=== PATIENT | female | born 1980 | race Caucasian/White ===

== ENCOUNTER 2024-07-01 15:09 | Emergency (ER) | payer MEDICAID, SELFPAY ==
--- NOTE | ~2024-07-01 | US_ITS ---
EXAMINATION: ULTRASOUND PELVIC, COMPLETE CLINICAL INFORMATION: Pelvic pain. Vaginal bleeding. Beta-hCG = 24 COMPARISON: None. TECHNIQUE: Transvaginal: Used to better visualize pelvic structures Transabdominal: Not adequate for visualization. Spectral Doppler and color Doppler exam was utilized. LMP: May 22, 2024 FINDINGS: UTERUS: No intrauterine gestation. No fluid collection in the endometrial cavity. The major stripe measures 0.7 cm. Uterus measures 4.3 x 8 x 4.2 cm. ADNEXA: Left adnexa: Left ovary not visualized. Right adnexa: Ovarian vascularity:Doppler demonstrates both arterial and venous vascular flow in the right ovary. No evidence of ovarian torsion. Right Ovary: Dominant follicle measuring 1.9 cm. Right ovary measures 2.6 x 1.4 x 3.4 cm. Cul-de-sac: No Fluid US/US OB <= 14 weeks fetus IMPRESSION: 1. No intrauterine gestation. No fluid collection in the endometrial cavity. 2. Left ovary not visualized. 3. Dominant follicle in the right ovary. Electronically signed by: Mg Nation MD 07/01/2024 08:03 PM [facility]
[2024-07-01 15:17] VITALS: BP 139/82; PULSE 84; RESP 16; TEMP 36.3; O2SAT 98; BMI 27.6
--- NOTE | 2024-07-01 15:19 | ED_ITS ---
HPI - General Adult General Chief complaint: Urogenital-Female Stated complaint: bleeding cramps Time Seen by Provider: 07/01/24 17:47 Related Data Allergies Allergy/AdvReac Type Severity Reaction Status Date / Time No Known Allergies Allergy Verified 07/01/24 15:22 [facility] Social History Social History Smoked in Last 30 Days: No Use of substances other than those prescribed or required for medical reasons: No Advance Directives: No Advance Directives Information Provided: Yes Do you have a plan to hurt others: No Plan Physical Exam ED Vital Signs: Vital Signs - 24 hr 07/01/24 15:17 07/01/24 18:26 07/01/24 20:05 Temperature 97.4 F 98.0 F 98.1 F Pulse Rate 84 56 50 Respiratory Rate 16 14 16 Blood Pressure 139/82 106/66 103/63 Pulse Oximetry 98 100 100 Oxygen Delivery Method Room Air Room Air Room Air BMI result Body Mass Index 27.6 Course Course Course Narrative: RME, this is a rapid medical exam performed by Charly Martines please refer to primary provider for complete H&P- 43-year-old female presents for evaluation of lower abdominal cramping and vaginal bleeding. She recently found out that she is , her last menstrual cycle was May 22. She is G2P!. Plan for labs, UA, ultrasound, ABO, RH typing Medical Decision Making Lab Data 07/01/24 16:22 07/01/24 16:22 Labs: Lab Results 07/01/24 Range/Units 16:22 WBC 10.2 (4.8-10.8) X10*3/uL RBC 4.10 L (4.20-5.50) X10*6/uL Hgb 12.6 (12.0-16.0) g/dl Hct 37.4 (37.0-47.0) % MCV 91.2 (80.0-98.0) fL MCH 30.7 (27.0-33.0) pg MCHC 33.7 (31.0-35.0) g/dl RDW 12.2 (11.0-16.0) % Plt Count 279 (160-400) X10*3/uL MPV 9.8 (9.4-12.3) fL Immature Gran % (Auto) 0.2 (0.0-0.4) % Neut % (Auto) 63.2 (45-73) % Lymph % (Auto) 29.6 (20-40) % [place] % (Auto) 5.1 (2-11) % Eos % (Auto) 1.5 (0-4) % Baso % (Auto) 0.4 (0-2) % Lymph # (Auto) 3.0 (1.2-4.9) X10*3/uL [place] # (Auto) 0.5 (0.1-1.2) X10*3/uL Eos # (Auto) 0.2 (0.0-0.4) X10*3/uL Baso # (Auto) 0.0 (0.0-0.2) X10*3/uL Abs Immat Gran (auto) 0.02 (0.00-0.03) X10*3/uL Absolute Neuts (auto) 6.4 (2.0-8.3) x10*3/uL Absolute Nucleated RBC 0.000 (0.0-0.012) X10*3/uL Nucleated RBC % (auto) 0.0 (0.0-0.2) /100WBC Sodium 140 (135-145) mmol/L Potassium 4.1 (3.3-5.1) mmol/L Chloride 107 (96-108) mmol/L Carbon Dioxide 26 (22-29) mmol/L Anion Gap 11 L (12-20) BUN 13 (9-16) mg/dL Creatinine 0.67 (0.5-1.4) mg/dL Estim Creat Clear Calc 115.3 Estimated GFR > 60 Random Glucose 85 (60-115) mg/dL Calcium 9.2 (8.4-10.2) mg/dL Total Bilirubin 0.7 (0.0-1.0) mg/dL AST 22 (5-31) U/L ALT 12 (0-31) U/L Alkaline Phosphatase 33 L (39-117) U/L Total Protein 7.0 (6.5-8.0) g/dL Albumin 4.2 (3.5-5.0) g/dL Lipase 22 (8-78) U/L Beta HCG, Quant 24 mIU/mL Urine Color Yellow Urine Appearance Cloudy Urine pH 5.5 (5.0-9.0) Ur Specific [place] 1.020 (1.005-1.025) Urine Protein Trace (Neg-Trace) mg/dL Urine Glucose (UA) Negative (Negative) mg/dL Urine Ketones Trace (Negative) mg/dL Urine Blood Large (3+) H (Negative) Urine Nitrite Negative (Negative) Ur Leukocyte Esterase Moderate (2+) H (Negative) Urine RBC >20 H (0-2) /HPF Urine WBC 6-10 H (0-5) /HPF Ur Squamous Epith Cells 0-2 (0-2) /HPF Urine Bacteria 1+ (None Seen) Hyaline Casts 0-2 (0-2) /LPF Blood Type A Positive Discharge Plan Discharge Clinical Impression: Threatened miscarriage Patient Disposition: Home, Self-Care Instructions: Ectopic (DC), Threatened Miscarriage (ED) Additional Instructions: Your condition can be caused by ectopic or in the wrong place. Worsened pain return to the emergency department immediately. It can also be caused by missed 80. Please come back in 2 days and get your repeat hormone level checked. Finally it could be a miscarriage. Referrals: Marni Shrestha MD [Emergency Provider] - 07/03/24 Print Language: Panamanian
[2024-07-01 16:26] LABS: MANUAL DIFF FLAG NO
[2024-07-01 16:29] LABS: Basophils Percent Auto 0.4 % (0-2); Eosinophils Absolute Auto 0.2 X10*3/uL (0.0-0.4); Eosinophils Percent Auto 1.5 % (0-4); Hematocrit 37.4 % (37.0-47.0); Hemoglobin 12.6 g/dl (12.0-16.0); Imm Gran Abs Auto 0.02 X10*3/uL (0.00-0.03); Imm Gran Pct Auto 0.2 % (0.0-0.4); Lymphocytes Percent Auto 29.6 % (20-40); Mean Corpuscular HGB Conc 33.7 g/dl (31.0-35.0); Mean Corpuscular Hemoglobin 30.7 pg (27.0-33.0); Mean Corpuscular Volume 91.2 fL (80.0-98.0); Mean Platelet Volume 9.8 fL (9.4-12.3); Monocytes Absolute Auto 0.5 X10*3/uL (0.1-1.2); Monocytes Percent Auto 5.1 % (2-11); Neutrophils Absolute Auto 6.4 x10*3/uL (2.0-8.3); Neutrophils Percent Auto 63.2 % (45-73); Platelet Count 279 X10*3/uL (160-400); Red Cell Distribution Width 12.2 % (11.0-16.0); White Blood Count 10.2 X10*3/uL (4.8-10.8)
[2024-07-01 16:34] LABS: Appearance Urine Cloudy; Color Urine Yellow; Glucose Urine UA Negative (Negative); Leukocyte Esterase Urine Moderate (2+) (Negative); Nitrite Urine Negative (Negative); PH 5.5 (5.0-9.0); UMIC TRIGGER UACC YES; Urine Blood Large (3+) (Negative); Urine Ketones Trace mg/dL (Negative); Urine Protein Trace mg/dL (Neg-Trace)
[2024-07-01 16:36] LABS: Bacteria Urine 1+ (None Seen); Hyaline Casts Urine 0-2 /LPF (0-2); RBC Urine >20 /HPF (0-2); Squamous Epithelial Cell Urine 0-2 /HPF (0-2); UACC Culture Trigger YES
[2024-07-01 17:01] LABS: Alanine Aminotransferase 12 U/L (0-31); Albumin Level 4.2 g/dL (3.5-5.0); Alkaline Phosphatase 33 U/L (39-117); Anion Gap 11 (12-20); Aspartate Amino Transferase 22 U/L (5-31); Bilirubin Total 0.7 mg/dL (0.0-1.0); Blood Urea Nitrogen 13 mg/dL (9-16); Calcium 9.2 mg/dL (8.4-10.2); Carbon Dioxide 26 mmol/L (22-29); Chloride 107 mmol/L (96-108); Creatinine Clr Calc Pharmacy 115.3; Estimated Glomerular Filt Rate > 60; Glucose Random 85 mg/dL (60-115); HCG Quantitative 24 mIU/mL; Lipase 22 U/L (8-78); Potassium 4.1 mmol/L (3.3-5.1); Sodium 140 mmol/L (135-145)
--- NOTE | 2024-07-01 18:12 | ED_ITS ---
HPI - Female Genitourinary General Chief complaint: Urogenital-Female Stated complaint: bleeding cramps Time Seen by Provider: 07/01/24 17:47 History of Present Illness HPI Narrative: patient is a 43-year-old female . Took a home test was positive. Patient came in for further evaluation today noticed having spotting. Having to change 3 pads. Small amount of clot mixed with blood. Patient is never had an ectopic . Minimal abdominal cramping. Have not had an ultrasound for this . Her last menstrual period was May 22. Patient is from home. Related Data Allergies Allergy/AdvReac Type Severity Reaction Status Date / Time No Known Allergies Allergy Verified 07/01/24 15:22 Review of Systems 2 Review of Systems: Positive lower abdominal cramping positive changing 3 pads Yes all other systems are reviewed and are negative [facility] Past Medical History Attestation statement: The following information was validated with the patient. Social History Social History Smoked in Last 30 Days: No Use of substances other than those prescribed or required for medical reasons: No Advance Directives: No Advance Directives Information Provided: Yes Do you have a plan to hurt others: No Plan Physical Exam 2 Vital Signs: Vital Signs: Last Vital Signs Temp 98.1 F 07/01/24 20:05 Pulse 50 07/01/24 20:05 Resp 16 07/01/24 20:05 BP 103/63 07/01/24 20:05 Pulse Ox 100 07/01/24 20:05 O2 Del Method Room Air 07/01/24 20:05 BMI result Body Mass Index 27.6 Appearance: Alert. Oriented X3. No acute distress. Eyes: Pupils equal, round and reactive to light. ENT: Pharynx normal. Neck: Normal inspection. Neck supple. No lymph nodes noted. No crepitus CVS: Normal heart rate and rhythm. Pulses normal. Normal S1 and S2 Respiratory: No respiratory distress. Breath sounds normal. No Wheezing. No rales Abdomen: Soft and nontender. No rigidity. No distention. good BS x4 Skin: Skin warm and dry. Normal skin color. Normal skin turgor. Extremities: No lower extremity edema. Neurovascular intact to all extremities. No Lacerations. No Rash Neuro: Oriented X 3. No motor deficit. No sensory deficit. Moving all extermities. No slurred speech pelvic exam done with tech Andre present. No external lesion. Cervical os is closed minimal bleeding in the vaginal vault. Minimal clots noted. Medical Decision Making Medical Decision Making [facility] Narrative: Well-appearing no acute distress. Patient's last menstrual period was May 22. Quant is only 24. Question dating versus ectopic versus miscarriage. Blood type is A-positive no ABO incompatibility. Currently awaiting ultrasound results. Patient's hemoglobin is 12.6. No signs of anemia. Patient's electrolytes are normal. Urine showed no signs of infection. patient quant hCG was 24. Well-appearing no distress. Patient's ultrasound showed no intrauterine . Question miscarriage versus early versus ectopic. Will have patient get a repeat quant in 2 days. Case discussed with Dr. Homero [place] from [facility]. Since he will be out of town in 2 days. Suggested patient to come back to the emergency department for follow-up. Repeat hormone check. Explained to patient risk of ectopic exists. Worsened pain to return to the ED immediately. Bleeding can persist. Currently in stable condition. Will discharge home Differential Diagnosis Differential Diagnoses: The differential diagnosis associated with the presentation includes ectopic versus miscarriage versus missed dating Admission/Observation Consideration of admission/observation: Escalation of care including admission/observation considered Consult Healthcare Provider Management of the patient was discussed with: [employer] ( [facility]) Lab Data [facility] Lab Attestation statement: I reviewed the patient's lab results. 07/01/24 16:22 07/01/24 16:22 Labs: Lab Results 07/01/24 Range/Units 16:22 WBC 10.2 (4.8-10.8) X10*3/uL RBC 4.10 L (4.20-5.50) X10*6/uL Hgb 12.6 (12.0-16.0) g/dl Hct 37.4 (37.0-47.0) % MCV 91.2 (80.0-98.0) fL MCH 30.7 (27.0-33.0) pg MCHC 33.7 (31.0-35.0) g/dl RDW 12.2 (11.0-16.0) % Plt Count 279 (160-400) X10*3/uL MPV 9.8 (9.4-12.3) fL Immature Gran % (Auto) 0.2 (0.0-0.4) % Neut % (Auto) 63.2 (45-73) % Lymph % (Auto) 29.6 (20-40) % [place] % (Auto) 5.1 (2-11) % Eos % (Auto) 1.5 (0-4) % Baso % (Auto) 0.4 (0-2) % Lymph # (Auto) 3.0 (1.2-4.9) X10*3/uL [place] # (Auto) 0.5 (0.1-1.2) X10*3/uL Eos # (Auto) 0.2 (0.0-0.4) X10*3/uL Baso # (Auto) 0.0 (0.0-0.2) X10*3/uL Abs Immat Gran (auto) 0.02 (0.00-0.03) X10*3/uL Absolute Neuts (auto) 6.4 (2.0-8.3) x10*3/uL Absolute Nucleated RBC 0.000 (0.0-0.012) X10*3/uL Nucleated RBC % (auto) 0.0 (0.0-0.2) /100WBC Sodium 140 (135-145) mmol/L Potassium 4.1 (3.3-5.1) mmol/L Chloride 107 (96-108) mmol/L Carbon Dioxide 26 (22-29) mmol/L Anion Gap 11 L (12-20) BUN 13 (9-16) mg/dL Creatinine 0.67 (0.5-1.4) mg/dL Estim Creat Clear Calc 115.3 Estimated GFR > 60 Random Glucose 85 (60-115) mg/dL Calcium 9.2 (8.4-10.2) mg/dL Total Bilirubin 0.7 (0.0-1.0) mg/dL AST 22 (5-31) U/L ALT 12 (0-31) U/L Alkaline Phosphatase 33 L (39-117) U/L Total Protein 7.0 (6.5-8.0) g/dL Albumin 4.2 (3.5-5.0) g/dL Lipase 22 (8-78) U/L Beta HCG, Quant 24 mIU/mL Urine Color Yellow Urine Appearance Cloudy Urine pH 5.5 (5.0-9.0) Ur Specific [place] 1.020 (1.005-1.025) Urine Protein Trace (Neg-Trace) mg/dL Urine Glucose (UA) Negative (Negative) mg/dL Urine Ketones Trace (Negative) mg/dL Urine Blood Large (3+) H (Negative) Urine Nitrite Negative (Negative) Ur Leukocyte Esterase Moderate (2+) H (Negative) Urine RBC >20 H (0-2) /HPF Urine WBC 6-10 H (0-5) /HPF Ur Squamous Epith Cells 0-2 (0-2) /HPF Urine Bacteria 1+ (None Seen) Hyaline Casts 0-2 (0-2) /LPF Blood Type A Positive Independent Interpretation I performed an independent interpretation of an: Ultrasound ( no IUP noted) Radiology Impression Discussion of test interpretation with radiology: I have reviewed the radiologist's reading. Discharge Plan Discharge Clinical Impression: Threatened miscarriage Patient Disposition: Home, Self-Care Instructions: Ectopic (DC), Threatened Miscarriage (ED) Additional Instructions: Your condition can be caused by ectopic or in the wrong place. Worsened pain return to the emergency department immediately. It can also be caused by missed 80. Please come back in 2 days and get your repeat hormone level checked. Finally it could be a miscarriage. Referrals: Marni Shrestha MD [Emergency Provider] - 07/03/24 Print Language: Georgian
[2024-07-01 18:26] VITALS: BP 106/66; PULSE 56; RESP 14; TEMP 36.7; O2SAT 100
[2024-07-01 20:05] VITALS: BP 103/63; PULSE 50; RESP 16; TEMP 36.7; O2SAT 100
[2024-07-01 20:35] VITALS: BP 103/63; PULSE 50; RESP 16; TEMP 36.7; O2SAT 100
--- NOTE | 2024-07-01 22:06 | P.CONOB_ITS ---
HEEL CASER - CN: HPI Data of Consult Consult date: 07/01/24 Primary Care Provider: None Physician Consult Narrative Narrative: Late entry note I was consulted at 20:11 on Gretta Johnson who is a 43 year old female patient who presented to the emergency room with light vaginal spotting and minimal vaginal bleeding and mild pelvic cramping, the patient had a positive home test . Her last menstrual period was May 22. In the emergency room the following workup was done: H&H within normal Blood type A positive Pelvic ultrasound showed the following: IMPRESSION: 1. No intrauterine gestation. No fluid collection in the endometrial cavity. 2. Left ovary not visualized. 3. Dominant follicle in the right ovary. cc:: CC: OB [facility] Social History Social History Smoked in Last 30 Days: No Use of substances other than those prescribed or required for medical reasons: No Advance Directives: No Advance Directives Information Provided: Yes Do you have a plan to hurt others: No Plan Meds Allergies Allergy/AdvReac Type Severity Reaction Status Date / Time No Known Allergies Allergy Verified 07/01/24 15:22 HEEL CASER Physical Exam Vitals Vital signs: Temp Pulse Resp BP Pulse Ox O2 Del Method 98.1 F 50 16 103/63 100 Room Air 07/01/24 20:35 07/01/24 20:35 07/01/24 20:35 07/01/24 20:35 07/01/24 20:35 07/01/24 20:35 BMI result Body Mass Index 27.6 Additional Comments: Pelvic exam to Dr. Shrestha reported as the following: No external lesion. Cervical os is closed minimal bleeding in the vaginal vault. Minimal clots noted. HEEL CASER - Results Labs 07/01/24 16:22 07/01/24 16:22 Labs: Short CBC 07/01/24 Range/Units 16:22 WBC 10.2 (4.8-10.8) X10*3/uL Hgb 12.6 (12.0-16.0) g/dl Hct 37.4 (37.0-47.0) % Plt Count 279 (160-400) X10*3/uL BMP 07/01/24 16:22 Sodium 140 Potassium 4.1 Chloride 107 Carbon Dioxide 26 BUN 13 Creatinine 0.67 Calcium 9.2 Liver Function 07/01/24 Range/Units 16:22 Total Bilirubin 0.7 (0.0-1.0) mg/dL AST 22 (5-31) U/L ALT 12 (0-31) U/L Alkaline Phosphatase 33 L (39-117) U/L Albumin 4.2 (3.5-5.0) g/dL Urine 1824 Range/Units 16:22 Urine Color Yellow Urine Appearance Cloudy Urine pH 5.5 (5.0-9.0) Ur Specific [place] 1.020 (1.005-1.025) Urine Protein Trace (Neg-Trace) mg/dL Urine Glucose (UA) Negative (Negative) mg/dL Assessment and Plan (1) Early stage of : Status: Acute Discussed the following with Dr. Shrestha: Differential diagnosis includes early , SAB, ectopic Recommend repeat quantitative hCG, ultrasound and evaluation in 48 hours. The patient is to follow-up with her OBGYN within 48 hours; explained to Dr. Shrestha that there is no available providers in our office for the coming week, therefore I recommend for the patient to come back to the emergency room in 48 hours for repeat quantitative hCG, pelvic ultrasound and re-evaluation. Signs and symptoms of SAB/incomplete AB and ectopic to be discussed with the patient, she is to come back to the emergency room in case of vaginal bleeding, pelvic pain prior to 48 hours. I spent a total of 20 minutes reviewing the chart, talking to the patient via video and documenting in the medical record.
== END 2024-07-01 20:36 | disposition home or self-care (01) ==
PROVIDERS: Physician Assistant; Emergency Provider Emergency Medicine Emergency Medical Services
DX: O20.0 Threatened abortion (principal); Z79.899 Other long term (current) drug therapy
CPT/HCPCS: 36415; 76801; 80053; 81001; 83690; 84702; 85025; 86900; 86901; 87086; 99284

== ENCOUNTER → 2024-07-01 18:09 | Outpatient (BNV) | payer MEDICAID, SELFPAY | PROVIDERS: Emergency Provider Emergency Medicine Emergency Medical Services; Visit Provider Obstetrics & Gynecology | DX: Z34.90 Encounter for supervision of normal pregnancy, unspecified, unspecified trimester (principal) | CPT/HCPCS: 99283 ==

== ENCOUNTER 2024-07-03 15:01 | Emergency (ER) | payer MEDICAID, OTHER, SELFPAY ==
[2024-07-03 15:08] VITALS: BP 137/77; PULSE 64; RESP 20; TEMP 36.2; O2SAT 100; BMI 22.8
--- NOTE | 2024-07-03 15:10 | ED.GENADULT ---
HPI - General Adult General Chief complaint: Recheck/Abnormal Lab/Rx Stated complaint: hormone recheck Time Seen by Provider: 07/03/24 19:04 Source: patient Mode of arrival: ambulatory Limitations: language barrier (Cameroonian speaking) History of Present Illness HPI narrative: Patient is a 43-year-old Cameroonian speaking female with LMP 05/22/2024 presenting to emergency department for evaluation of continued vaginal bleeding improving lower abdominal cramping requesting repeat hCG level. She states that she was seen in the emergency department 2 days ago, was advised at this time to come back to have repeat hCG. She admits that when the bleeding started 2 days ago she had passed a large clump of tissue and has since had bleeding going through about 3 pads daily. The bleeding has lightened up some and her cramping is improving. She denies any back pain, fevers, chills, nausea, vomiting, urinary symptoms. Related Data Allergies Allergy/AdvReac Type Severity Reaction Status Date / Time No Known Allergies Allergy Verified 07/03/24 15:11 [facility] Social History Social History Advance Directives: No Advance Directives Information Provided: No Physical Exam ED Vital Signs: Vital Signs - 24 hr 07/03/24 15:08 07/03/24 20:00 Temperature 97.2 F 97.8 F Pulse Rate 64 50 Respiratory Rate 20 16 Blood Pressure 137/77 110/56 L Pulse Oximetry 100 99 Oxygen Delivery Method Room Air Room Air BMI result Body Mass Index 22.8 Course Course Course Narrative: This is a rapid medical exam performed by Boaz Waters NP: Additional HPI, ROS, PE not included below will be deferred to primary provider. Patient is a 43-year-old Cameroonian speaking female presenting to the ED for an HCG recheck. Tested positive for , then Saturday began to have vaginal bleeding and cramping. LMP 05/22. Medical Decision Making Medical Decision Making MDM Narrative: This is a 43-year-old female presents emergency department for re-evaluation of lightening of vaginal bleeding somewhat improved lower abdominal cramping setting concern for miscarriage. She was seen in the ED 07/01/2024 had a pelvic ultrasound at that time without evidence of intrauterine gestation nor fluid collection that endometrial cavity. She was advised to have repeat hCG and re-evaluation to differentiate between ectopic versus early trimester bleeding versus spontaneous . Given her history and downtrending hCG from 20 for 2 days ago to 11 I suspect that this is most consistent with an at this time. She declines any pelvic examination. She was advised to follow up accordingly with OBGYN for any continued symptoms, they may consider repeating the hCG to assure that it has gone down to a nondetectable level. I discussed with her strict return precautions, worrisome signs and symptoms that might indicate retained products of conception though I think this is less likely given her recent ultrasound without evidence of intrauterine gestation or POC. All questions answered Differential Diagnosis Differential Diagnoses: The differential diagnosis associated with the presentation includes (See narrative above) Lab Data MDM Lab Attestation statement: I reviewed the patient's lab results. CBC is without anemia or thrombocytopenia. No electrolyte derangement. No MORTEZA. HCG as per narrative above 07/03/24 15:36 07/03/24 15:36 Labs: Lab Results 07/03/24 Range/Units 15:36 WBC 12.6 H (4.8-10.8) X10*3/uL RBC 4.37 (4.20-5.50) X10*6/uL Hgb 13.4 (12.0-16.0) g/dl Hct 40.2 (37.0-47.0) % MCV 92.0 (80.0-98.0) fL MCH 30.7 (27.0-33.0) pg MCHC 33.3 (31.0-35.0) g/dl RDW 12.3 (11.0-16.0) % Plt Count 296 (160-400) X10*3/uL MPV 10.0 (9.4-12.3) fL Immature Gran % (Auto) 0.3 (0.0-0.4) % Neut % (Auto) 64.1 (45-73) % Lymph % (Auto) 30.0 (20-40) % [place] % (Auto) 3.7 (2-11) % Eos % (Auto) 1.5 (0-4) % Baso % (Auto) 0.4 (0-2) % Lymph # (Auto) 3.8 (1.2-4.9) X10*3/uL [place] # (Auto) 0.5 (0.1-1.2) X10*3/uL Eos # (Auto) 0.2 (0.0-0.4) X10*3/uL Baso # (Auto) 0.1 (0.0-0.2) X10*3/uL Abs Immat Gran (auto) 0.04 H (0.00-0.03) X10*3/uL Absolute Neuts (auto) 8.1 (2.0-8.3) x10*3/uL Absolute Nucleated RBC 0.000 (0.0-0.012) X10*3/uL Nucleated RBC % (auto) 0.0 (0.0-0.2) /100WBC Sodium 143 (135-145) mmol/L Potassium 4.3 (3.3-5.1) mmol/L Chloride 108 (96-108) mmol/L Carbon Dioxide 26 (22-29) mmol/L Anion Gap 13 (12-20) BUN 16 (9-16) mg/dL Creatinine 0.68 (0.5-1.4) mg/dL Estim Creat Clear Calc 108.7 Estimated GFR > 60 Random Glucose 87 (60-115) mg/dL Calcium 9.7 (8.4-10.2) mg/dL Total Bilirubin 0.5 (0.0-1.0) mg/dL AST 22 (5-31) U/L ALT 13 (0-31) U/L Alkaline Phosphatase 42 (39-117) U/L Total Protein 7.7 (6.5-8.0) g/dL Albumin 4.5 (3.5-5.0) g/dL Beta HCG, Quant 11 mIU/mL External Record Review External record reviewed: Outpatient record Tests considered The following testing was considered but not selected: No clinical indication for repeat ultrasound at this time. Discharge Plan Discharge Clinical Impression: Spontaneous miscarriage Patient Disposition: Home, Self-Care Instructions: Miscarriage (ED) Additional Instructions: As discussed, your blood levels have continued to trend down words, this and consideration of your bleeding appears most consistent with a spontaneous miscarriage at this time. Please follow-up with OBGYN provider. Return with any new or worsening symptoms or concerns. Referrals: Physician,None [Primary Care Provider] - Print Language: Cameroonian
[2024-07-03 15:37] LABS: MANUAL DIFF FLAG NO
[2024-07-03 15:38] LABS: Basophils Absolute Auto 0.1 X10*3/uL (0.0-0.2); Basophils Percent Auto 0.4 % (0-2); Eosinophils Absolute Auto 0.2 X10*3/uL (0.0-0.4); Eosinophils Percent Auto 1.5 % (0-4); Hematocrit 40.2 % (37.0-47.0); Hemoglobin 13.4 g/dl (12.0-16.0); Imm Gran Abs Auto 0.04 X10*3/uL (0.00-0.03); Imm Gran Pct Auto 0.3 % (0.0-0.4); Lymphocytes Absolute Auto 3.8 X10*3/uL (1.2-4.9); Mean Corpuscular HGB Conc 33.3 g/dl (31.0-35.0); Mean Corpuscular Hemoglobin 30.7 pg (27.0-33.0); Monocytes Absolute Auto 0.5 X10*3/uL (0.1-1.2); Monocytes Percent Auto 3.7 % (2-11); Neutrophils Absolute Auto 8.1 x10*3/uL (2.0-8.3); Neutrophils Percent Auto 64.1 % (45-73); Platelet Count 296 X10*3/uL (160-400); Red Blood Count 4.37 X10*6/uL (4.20-5.50); Red Cell Distribution Width 12.3 % (11.0-16.0); White Blood Count 12.6 X10*3/uL (4.8-10.8)
[2024-07-03 16:09] LABS: Albumin Level 4.5 g/dL (3.5-5.0); Anion Gap 13 (12-20); Aspartate Amino Transferase 22 U/L (5-31); Bilirubin Total 0.5 mg/dL (0.0-1.0); Blood Urea Nitrogen 16 mg/dL (9-16); Calcium 9.7 mg/dL (8.4-10.2); Carbon Dioxide 26 mmol/L (22-29); Chloride 108 mmol/L (96-108); Creatinine Clr Calc Pharmacy 108.7; Estimated Glomerular Filt Rate > 60; Glucose Random 87 mg/dL (60-115); HCG Quantitative 11 mIU/mL; Potassium 4.3 mmol/L (3.3-5.1); Sodium 143 mmol/L (135-145); Total Protein 7.7 g/dL (6.5-8.0)
[2024-07-03 17:10] LABS: Alanine Aminotransferase 13 U/L (0-31); Alkaline Phosphatase 42 U/L (39-117)
[2024-07-03 20:00] VITALS: BP 110/56; PULSE 50; RESP 16; TEMP 36.6; O2SAT 99
[2024-07-03 20:54] VITALS: BP 110/56; PULSE 50; RESP 16; TEMP 36.6; O2SAT 99
== END 2024-07-03 20:54 | disposition home or self-care (01) ==
PROVIDERS: Registered Nurse Emergency; Emergency Provider Emergency Medicine
DX: O03.9 Complete or unspecified spontaneous abortion without complication (principal); R10.9 Unspecified abdominal pain
CPT/HCPCS: 36415; 80053; 84702; 85025; 99283